=== PATIENT | male | born 1950 | race African-American/Black ===

== ENCOUNTER 2018-06-10 07:21 | Day surgery (SDC) | payer OTHER ==
[2018-06-03 14:09] VITALS: BMI 32.3
[2018-06-10] MEDS ORDERED: LIDOCAINE HCL/PF 2% SDV 5ML VIAL ONE (09:32)
[2018-06-10 10:09] VITALS: TEMP 97.5
[2018-06-10 10:41] VITALS: BP 109/75; PULSE 74
--- NOTE | 2018-06-12 12:49 | PATH ---
Surgical Pathology Report Patient Name: MARYSE ARELLANO [facility]. Rec. #: [id number] /Age/Gender: 1950 (Age: 68) / M Account: [id number] Location: [facility] Taken: 06/10/2018 Received: 06/10/2018 Reported: 06/12/2018 Physicians: Mateo Dominguez M.D. Specimen(s) Received A: HEPATIC FLEXURE POLYP BX B: DISTAL RIGHT COLON POLYP BX C: PROXIMAL RIGHT COLON POLYP POLYPECTOMY D: MID RIGHT COLON POLYP POLYPECTOMY Clinical History History of polyps Postoperative diagnosis: Colon polyps Final Diagnosis A. HEPATIC FLEXURE, POLYP, BIOPSY: TUBULAR ADENOMA. B. DISTAL RIGHT COLON, POLYP, BIOPSY: TUBULAR ADENOMA. C. PROXIMAL RIGHT COLON, POLYP, POLYPECTOMY: TUBULAR ADENOMA. D. MID RIGHT COLON, POLYP, POLYPECTOMY: TUBULAR ADENOMA. Electronically Signed Ophelia Ayala M.D. Gross Description A. Received in formalin, labeled "biopsy polyp of hepatic flexure" is a best, irregular portion of soft tissue measuring 0.4 cm. in greatest dimension. The specimen is submitted in toto in one cassette. B. Received in formalin, labeled "biopsy polyp distal right colon" is a best, irregular portion of soft tissue measuring 0.4 cm. in greatest dimension. The specimen is submitted in toto in one cassette. C. Received in formalin, labeled "hot snare polypectomy proximal right colon" are 4 best, irregular portions of soft tissue ranging from 0.2-0.6 cm. in greatest dimension. The specimens are submitted in toto in one cassette. D. Received in formalin, labeled "hot snare polypectomy mid right colon" is a best, polypoid portion of soft tissue measuring 0.7 cm. in greatest dimension. The specimen is submitted in toto in one cassette. 06/11/2018 saudi06/11/2018
== END 2018-06-10 10:45 | disposition home or self-care (01) ==
LOC: FASU-ENDO 07:21
PROVIDERS: ATTEND Internal Medicine Gastroenterology
PROC: 0DBK8ZX Excision of Ascending Colon, Via Natural or Artificial Opening Endoscopic, Diagnostic (ICD-10-PCS; principal; 2018-06-10 09:34)
PROC: 0DBL8ZX Excision of Transverse Colon, Via Natural or Artificial Opening Endoscopic, Diagnostic (ICD-10-PCS; 2018-06-10 09:34)
DX: Z86.010 Personal history of colon polyps (principal); D12.2 Benign neoplasm of ascending colon; D12.3 Benign neoplasm of transverse colon; Z80.0 Family history of malignant neoplasm of digestive organs
CPT/HCPCS: 88305-TC

== ENCOUNTER 2021-09-22 06:43 | Day surgery (SDC) | payer OTHER ==
[2021-09-19 15:54] VITALS: BMI 31.6
[2021-09-22] MEDS ORDERED: LIDOCAINE HCL/PF 2% SDV 5ML VIAL ONE (07:28)
[2021-09-22] MEDS ORDERED: PROPOFOL 80 ML ONE (07:28)
[2021-09-22 07:30] VITALS: RESP 20
[2021-09-22 09:00] VITALS: TEMP 97.3
[2021-09-22 09:25] VITALS: BP 102/57; PULSE 72
== END 2021-09-22 09:30 | disposition home or self-care (01) ==
LOC: FASU-ENDO 06:43
PROVIDERS: ATTEND Internal Medicine Gastroenterology
PROC: 0DBL8ZX Excision of Transverse Colon, Via Natural or Artificial Opening Endoscopic, Diagnostic (ICD-10-PCS; 2021-09-22)
PROC: 0DBK8ZX Excision of Ascending Colon, Via Natural or Artificial Opening Endoscopic, Diagnostic (ICD-10-PCS; 2021-09-22)
PROC: 3E0H8KZ Introduction of Other Diagnostic Substance into Lower GI, Via Natural or Artificial Opening Endoscopic (ICD-10-PCS; 2021-09-22)
PROC: 0DBN8ZX Excision of Sigmoid Colon, Via Natural or Artificial Opening Endoscopic, Diagnostic (ICD-10-PCS; principal; 2021-09-22 08:16)
DX: Z12.11 Encounter for screening for malignant neoplasm of colon (principal); Z83.71 Family history of colonic polyps; Z80.0 Family history of malignant neoplasm of digestive organs; D12.2 Benign neoplasm of ascending colon; K63.5 Polyp of colon
CPT/HCPCS: 82962; 88305-TC